=== PATIENT | female | born 1990 | race Caucasian/White ===

== ENCOUNTER 2017-12-15 11:41 | Emergency (ER) | payer OTHER ==
[2017-12-15] MEDS: KETOROLAC 60 MG INJ IM (12:07)
== END 2017-12-15 12:51 | disposition home or self-care (01) ==
LOC: FTE 11:41
DX: M25.562 Pain in left knee (principal)
CPT/HCPCS: 73562; 96372; 99284-25

== ENCOUNTER 2017-12-19 20:40 | Emergency (ER) | payer OTHER ==
[2017-12-19] MEDS: HYDROCODONE/APAP (5/325) TAB PO (21:40)
[2017-12-19] MEDS: METHYLPREDNISOLONE 125 MG INJ IM (21:41)
== END 2017-12-19 23:19 | disposition home or self-care (01) ==
LOC: FTE 20:40
DX: M76.892 Other specified enthesopathies of left lower limb, excluding foot (principal)
CPT/HCPCS: 29505; 96372; 99284-25

== ENCOUNTER 2018-05-19 21:33 | Emergency (ER) | payer OTHER ==
[2018-05-19] MEDS: ONDANSETRON (ODT) 4 MG TAB ODT (23:31)
[2018-05-19 23:49] LABS: ADD UMIC YES; UR ASCORBIC ACID NEGATIVE (NEGATIVE); UR BILIRUBIN (Dip) NEGATIVE (NEGATIVE); UR BLOOD (Dip) NEGATIVE (NEGATIVE); UR CLARITY SLIGHTLY CLOUDY (CLEAR); UR COLOR YELLOW (YELLOW); UR GLUCOSE (Dip) NEGATIVE (NEGATIVE); UR KETONES (Dip) NEGATIVE (NEGATIVE); UR LEUKOCYTE ESTERASE (Dip) 1+ Leu/ul (NEGATIVE); UR MUCUS MANY /HPF (NONE SEEN); UR NITRITE (Dip) NEGATIVE (NEGATIVE); UR RBC 5 /HPF (0-5); UR SPECIFIC GRAVITY (Dip) 1.028 (1.003-1.030); UR SQUAMOUS EPITHELIAL CELL FEW /HPF (FEW); UR TOTAL PROTEIN (Dip) NEGATIVE (NEGATIVE); UR UROBILINOGEN (Dip) 2+ mg/dL (NEGATIVE); UR WBC 4 /HPF (0-5)
[2018-05-19] MEDS: ACETAMINOPHEN 325 MG TAB PO (23:58)
[2018-05-20] MEDS: CEPHALEXIN 500 MG CAP PO (00:07)
== END 2018-05-20 00:27 | disposition home or self-care (01) ==
LOC: FTE 21:33
DX: R11.10 Vomiting, unspecified (principal)
CPT/HCPCS: 81001; 81025; 99283

== ENCOUNTER 2018-05-22 17:06 | Emergency (ER) | payer OTHER | END 2018-05-22 18:37 | disposition home or self-care (01) | LOC: FTE 17:06 | DX: H60.91 Unspecified otitis externa, right ear (principal); H92.01 Otalgia, right ear | CPT/HCPCS: 99283; Z7502 ==

== ENCOUNTER 2018-06-10 12:06 | Emergency (ER) | payer SELFPAY, OTHER ==
[2018-06-10] MEDS: ONDANSETRON (ODT) 4 MG TAB ODT (13:16)
[2018-06-10] MEDS: ACETAMINOPHEN 500 MG TAB PO (13:16)
[2018-06-10 13:17] LABS: URINE BLOOD (Dip) POC Negative (NEGATIVE); URINE GLUCOSE (Dip) POC Negative (NEGATIVE); URINE KETONES (Dip) POC 1+ (NEGATIVE); URINE LEUKOCYTE EST (Dip) POC 2+ (NEGATIVE); URINE NITRITE (Dip) POC Negative (NEGATIVE); URINE TOTAL PROTEIN POC Negative (NEGATIVE)
[2018-06-10 13:17] LABS: URINE PH (Dip) POC 6.5 (5.0-8.5)
== END 2018-06-10 13:44 | disposition home or self-care (01) ==
LOC: FTE 12:06
DX: N39.0 Urinary tract infection, site not specified (principal)
CPT/HCPCS: 81003; 81025; 87086; 99283